=== PATIENT | female | born 1980 ===

== ENCOUNTER 2020-10-06 10:10 | Emergency (ER) | payer BC ==
[2020-10-06] MEDS ORDERED: Albuterol/Ipratropium 3.0-0.5 MG/3 ML Neb Soln NEB ONE (10:29)
--- NOTE | 2020-10-06 10:34 | EDM.PDOC ---
ED HPI GENERAL MEDICAL PROBLEM - General Chief Complaint: Respiratory Problem Stated Complaint: REFERRED FROM WALK IN CLINIC Time Seen by Provider: 10/06/20 10:17 Source of Information: Reports: Patient History Limitations: Reports: No Limitations - History of Present Illness INITIAL COMMENTS - FREE TEXT/NARRATIVE: Patient is a 39-year-old female presents today for shortness of breath. Patient tested positive for Covid about 10 days ago. States her symptoms started to resolve but this morning she woke up with increased shortness of breath. Patient has shortness of breath even at rest states is not made better or worse with ambulation. She denies any chest pain fever chills nausea vomiting or leg swelling. - Related Data Allergies Allergy/AdvReac Type Severity Reaction Status Date / Time No Known Allergies Allergy Verified 10/06/20 10:15 Home Meds: Home Meds . [No Known Home Meds] 10/06/20 [History] Past Medical History - Past Health History Medical/Surgical History: Denies Medical/Surgical History - Infectious Disease History Infectious Disease History: Reports: Novel Coronavirus Social & Family History - Tobacco Use Tobacco Use Status *Q: Former Tobacco User Used Tobacco, but Quit: Yes Month/Year Tobacco Last Used: 10/02 - Caffeine Use Caffeine Use: Reports: None - Recreational Drug Use Recreational Drug Use: No ED ROS GENERAL - Review of Systems Review Of Systems: See Below Constitutional: Reports: No Symptoms HEENT: Reports: No Symptoms Respiratory: Reports: Shortness of Breath Cardiovascular: Reports: No Symptoms Endocrine: Reports: No Symptoms GI/Abdominal: Reports: No Symptoms : Reports: No Symptoms Musculoskeletal: Reports: No Symptoms Skin: Reports: No Symptoms Neurological: Reports: No Symptoms Psychiatric: Reports: No Symptoms Hematologic/Lymphatic: Reports: No Symptoms Immunologic: Reports: No Symptoms ED EXAM, GENERAL - Physical Exam Exam: See Below Exam Limited By: No Limitations General Appearance: Alert, WD/WN, No Apparent Distress Head: Atraumatic Neck: Normal Inspection, Supple, Non-Tender Respiratory/Chest: No Respiratory Distress, Lungs Clear, Normal Breath Sounds Cardiovascular: Normal Peripheral Pulses, Regular Rate, Rhythm GI/Abdominal: Normal Bowel Sounds, Soft, Non-Tender Extremities: Normal Inspection, Normal Range of Motion Neurological: Alert, Oriented, Normal Cognition, Normal Gait Skin Exam: Warm #1 Interpretation EKG Date: 10/06/20 Time: 10:10 Rhythm: NSR Rate (Beats/Min): 74 ST-T: Normal Course - Vital Signs Last Recorded V/S: Last Vital Signs Temp 96.7 F L 10/06/20 10:15 Pulse 76 10/06/20 11:08 Resp 16 10/06/20 11:08 BP 118/80 10/06/20 11:08 Pulse Ox 99 10/06/20 11:08 - Orders/Labs/Meds Labs: Laboratory Tests 10/06/20 10/06/20 10/06/20 Range/Units 10:15 10:15 10:15 WBC 5.99 (4.0-11.0) K/uL RBC 4.72 (4.30-5.90) M/uL Hgb 14.5 (12.0-16.0) g/dL Hct 41.6 (36.0-46.0) % MCV 88.1 (80.0-98.0) fL MCH 30.7 (27.0-32.0) pg MCHC 34.9 (31.0-37.0) g/dL RDW Std Deviation 44.5 (28.0-62.0) fl RDW Coeff of Isidoro 14 (11.0-15.0) % Plt Count 327 (150-400) K/uL MPV 10.50 (7.40-12.00) fL Neut % (Auto) 57.8 (48.0-80.0) % Lymph % (Auto) 32.4 (16.0-40.0) % Hand % (Auto) 7.8 (0.0-15.0) % Eos % (Auto) 1.8 (0.0-7.0) % Baso % (Auto) 0.2 (0.0-1.5) % Neut # (Auto) 3.5 (1.4-5.7) K/uL Lymph # (Auto) 1.9 (0.6-2.4) K/uL Hand # (Auto) 0.5 (0.0-0.8) K/uL Eos # (Auto) 0.1 (0.0-0.7) K/uL Baso # (Auto) 0.0 (0.0-0.1) K/uL Nucleated RBC % 0.0 /100WBC Nucleated RBCs # 0 K/uL Sodium 136 (136-145) mmol/L Potassium 4.1 (3.5-5.1) mmol/L Chloride 101 (98-107) mmol/L Carbon Dioxide 25.5 (21.0-32.0) mmol/L BUN 13 (7.0-18.0) mg/dL Creatinine 0.8 (0.6-1.0) mg/dL Est Cr Clr Drug Dosing 90.13 mL/min Estimated GFR (MDRD) > 60.0 ml/min Glucose 254 H (74-106) mg/dL Calcium 8.8 (8.5-10.1) mg/dL HCG, Qual NEGATIVE (NEG) Meds: Medications Discontinued Medications Generic Name Dose Route Start Last Admin Trade Name Freq PRN Reason Stop Dose Admin Albuterol/Ipratropium 3 ml 10/06/20 10:29 10/06/20 10:50 Albuterol/Ipratropium 3.0-0.5 Mg/3 Ml Neb Soln NEB 10/06/20 10:30 3 ml ONETIME ONE Administration - Re-Assessments/Exams Free Text/Narrative Re-Assessment/Exam: 10/06/20 11:39 Patient breathing is better. Patient will be discharged home with a butyryl. Departure - Departure Time of Disposition: 11:39 Disposition: Home, Self-Care 01 Condition: Good Clinical Impression: Dyspnea - Discharge Information *PRESCRIPTION DRUG MONITORING PROGRAM REVIEWED*: Not Applicable *COPY OF PRESCRIPTION DRUG MONITORING REPORT IN PATIENT [place]: Not Applicable Instructions: Shortness of Breath, Adult Forms: ED Department Discharge Additional Instructions: The following information is given to patients seen in the emergency department who are being discharged to home. This information is to outline your options for follow-up care. We provide all patients seen in our emergency department with a follow-up referral. The need for follow-up, as well as the timing and circumstances, are variable depending upon the specifics of your emergency department visit. If you don't have a primary care physician on staff, we will provide you with a referral. We always advise you to contact your personal physician following an emergency department visit to inform them of the circumstance of the visit and for follow-up with them and/or the need for any referrals to a consulting specialist. The emergency department will also refer you to a specialist when appropriate. This referral assures that you have the opportunity for follow-up care with a specialist. All of these measure are taken in an effort to provide you with optimal care, which includes your follow-up. Under all circumstances we always encourage you to contact your private physician who remains a resource for coordinating your care. When calling for follow-up care, please make the office aware that this follow-up is from your recent emergency room visit. If for any reason you are refused follow-up, please contact the [facility] Emergency Department at and asked to speak to the emergency department charge nurse. Please follow up with your primary care physician. If you do not have a primary care physician, see below: [facility] [address] [place] [id number] My [facility] [address] [place] [address] He was seen today for increasing shortness of breath after your Covid diagnosis. Your oxygen level was close to 100% here. Your x-ray was clear. We sent home with albuterol to use as needed. If you have any other concerning signs or symptoms please return to the ED otherwise follow-up to primary care physician. Sepsis Event Note (ED) - Focused Exam Vital Signs: Vital Signs Temp Pulse Resp BP Pulse Ox 10/06/20 11:08 76 16 118/80 99 10/06/20 10:15 96.7 F L 71 18 148/81 H 99 - Assessment/Plan Plan: Patient is a 39-year-old female who presents today for increased shortness of breath. Patient was positive for Covid 10 days ago. Patient is not taking on exam looks well and satting 98% on room air. Will give nebulizer treatment x- ray and reassess.
[2020-10-06 10:54] LABS: BLOOD UREA NITROGEN,BUN 13 mg/dL (7.0-18.0); CARBON DIOXIDE,CO2 25.5 mmol/L (21.0-32.0); CHLORIDE,CL 101 mmol/L (98-107); GLUCOSE RANDOM 254 mg/dL (74-106); POTASSIUM,K 4.1 mmol/L (3.5-5.1); SODIUM,NA 136 mmol/L (136-145)
--- NOTE | 2020-10-06 11:25 | CR ---
INDICATION: Cough. Recent COVID-19 infection. TECHNIQUE: Chest 1 view COMPARISON: None FINDINGS: Cardiovascular and mediastinum: Heart size and vasculature are normal in caliber and appearance. Lungs and pleural spaces: Lungs are clear. No sign of infiltrate or mass. No sign of pleural effusion. No pneumothorax. Bones and soft tissues: No significant findings. IMPRESSION: Negative chest. Lungs are clear. Dictated by Bobby Mir MD @ 10/06/2020 11:24:[address] Bobby Mir @ Oct 06 2020 11:24AM
== END 2020-10-06 11:58 | disposition home or self-care (01) ==
LOC: MW.ED 10:10
DX: R06.02 Shortness of breath (principal); Z87.891 Personal history of nicotine dependence
CPT/HCPCS: 36415; 71045; 71045-26; 80048; 84703; 85025; 93005; 94640; 99285-25; J7620-GY